=== PATIENT | female | born 1960 | race Hispanic/Latino ===

== ENCOUNTER 2017-10-04 21:21 | Inpatient (IN) | payer MEDICAID, OTHER ==
[2017-10-04 21:21] VITALS: BMI 27.3
--- NOTE | 2017-10-04 22:14 | C.PDOC ---
History Of Present Illness 57 y/o female hx of chronic alcohol abuse for years presents to the ED for alcohol detox. The patient denies fever, dizziness, headaches, vomiting, and diarrhea. Chief Complaint (Nursing): Psychiatric Evaluation History Per: Patient History/Exam Limitations: no limitations Onset/Duration Of Symptoms: Hrs Current Symptoms Are (Timing): Still Present Additional History Per: Patient Past Medical History Reviewed: Historical Data, Nursing Documentation, Vital Signs Vital Signs: Last Vital Signs Temp 97.7 F 10/04/17 21:47 Pulse 65 10/04/17 21:47 Resp 18 10/04/17 21:47 BP 136/84 10/04/17 21:47 Pulse Ox 94 L 10/04/17 22:21 - Medical History PMH: Anxiety (ALCOHOL USE), COPD, Depression, HTN, Chronic Kidney Disease, Seizures, TIA Denies: Alzheimer's Disease, Anemia, Arthritis, Asthma, Bipolar Disorder, Bronchitis, Cardia Arrhythmia, CHF, Crohn's Disease, Dementia, Diabetes, Diverticulitis, Emphysema, Fibromyalgia, Fractures, Gastrointestinal Ulcer, Gall Bladder Disease, Hepatitis, HIV, Hypercholesterolemia, Hyperthyroidism, Hypothyroidism, Kidney Stones, Migraine, Mitral Valve Prolapse, Osteoporosis, Pancreatitis, Paranoia, Parkinson's Disease, Peripheral Edema, Pneumonia, Post Traumatic Stress Disorder, Schizophrenia, Sickle Cell Disease, Sexually Transmitted Disease, Sleep Apnea Surgical History: Tonsillectomy Denies: Appendectomy, Cholecystectomy, Coronary Stent, Pacemaker - [facility] Procedures CENTRAL VENOUS CATHETER PLACEMENT WITH GUIDANCE (01/07/15) COMBINED ALCOHOL AND DRUG DETOXIFICATION (06/29/15) DETOXIFICATION SERVICES FOR SUBSTANCE ABUSE TREATMENT (02/23/16) INDIV PSYCHOTHERAPY FOR SUBSTANCE ABUSE, PSYCHOEDUCATION (02/23/16) INFLUENZA VACCINATION (01/28/14) INJECT/INFUSE NEC (12/18/12) INSPECTION OF UPPER INTESTINAL TRACT, ENDO (11/07/16) NEBULIZER THERAPY (09/10/14) OTHER ENDOSCOPY OF SM INTEST (06/11/13) PACKED CELL TRANSFUSION (01/07/15) PERCUTANEOUS ABDOMINAL DRAINAGE (01/07/15) PLATELET TRANSFUSION (01/07/15) SERUM TRANSFUSION NEC (01/07/15) TRANSFUSE NONAUT PLATELETS IN PERIPH VEIN, PERC (11/07/16) TRANSFUSE NONAUT RED BLOOD CELLS IN PERIPH VEIN, PERC (10/01/15) VACCINATION NEC (01/28/14) Family History: States: No Known Family Hx - Social History Hx Tobacco Use: Yes Hx Alcohol Use: Yes (BEER DAILY) Hx Substance Use: Yes - Immunization History Hx Tetanus Toxoid Vaccination: Yes Hx Influenza Vaccination: Yes Hx Pneumococcal Vaccination: Yes Review Of Systems Except As Marked, All Systems Reviewed And Found Negative. Constitutional: Negative for: Fever, Chills Cardiovascular: Negative for: Chest Pain Respiratory: Negative for: Shortness of Breath Gastrointestinal: Negative for: Nausea, Vomiting, Abdominal Pain, Diarrhea Physical Exam - Physical Exam Appears: Non-toxic, No Acute Distress Skin: Warm, Dry Head: Normacephalic Eye(s): bilateral: Normal Inspection Oral Mucosa: Moist Neck: Supple Chest: Symmetrical Cardiovascular: Rhythm Regular Respiratory: Normal Breath Sounds, No Rales, No Rhonchi, No Wheezing Gastrointestinal/Abdominal: Soft, No Tenderness, No Guarding, No Rebound Back: No Vertebral Tenderness, No Paraspinal Tenderness, Other (cysts on the left lower lumbar 3x3 cm) Extremity: No Tenderness, Capillary Refill (2<sec.) Neurological/Psych: Oriented x3, Normal Speech, Normal Cognition Gait: Steady ED Course And Treatment - Laboratory Results Result Diagrams: 10/04/17 22:42 10/04/17 22:42 O2 Sat by Pulse Oximetry: 94 (RA) Progress Note: UA and Blood work was performed. Disposition Discussed With : Brittany Castaneda Doctor Will See Patient In The: Hospital Counseled Patient/Family Regarding: Diagnosis - Disposition Disposition: HOSPITALIZED Disposition Time: 05:10 Condition: STABLE Forms: [facility] (Fijian) - POA Present On Arrival: None - Clinical Impression Clinical Impression: Alcohol abuse with alcohol-induced disorder - Scribe Statement The provider has reviewed the documentation as recorded by the Scribe Pamella Jay All medical record entries made by the Scribe were at my direction and personally dictated by me. I have reviewed the chart and agree that the record accurately reflects my personal performance of the history, physical exam, medical decision making, and the department course for this patient. I have also personally directed, reviewed, and agree with the discharge instructions and disposition.
[2017-10-04 22:46] LABS: BASO # 0.1 K/uL (0.0-0.2); BASO % 1.1 % (0.0-2.0); EOS # 0.1 K/uL (0.0-0.7); EOS % 2.7 % (0.0-4.0); HEMATOCRIT 44.8 % (34.0-47.0); LYMPH # 1.3 K/uL (1.0-4.3); MEAN CELL VOLUME 104.1 fL (81.0-99.0); MEAN CORPUSCULAR HEMOGLOBIN 34.9 pg (27.0-31.0); MEAN CORPUSCULAR HGB CONC 33.5 g/dL (33.0-37.0); MEAN PLATELET VOLUME 9.8 fL (7.2-11.7); MONO # 0.8 K/uL (0.0-0.8); MONO % 15.6 % (0.0-10.0); NRBC % 0.1 % (0.0-2.0); RED CELL DISTRIBUTION WIDTH 16.2 % (11.5-14.5); WHITE BLOOD COUNT 5.1 K/uL (4.8-10.8)
[2017-10-04 22:49] LABS: URINE BACTERIA RARE (<OCC); URINE BILIRUBIN NEGATIVE (NEGATIVE); URINE BLOOD NEGATIVE (NEGATIVE); URINE COLOR Yellow (YELLOW); URINE GLUCOSE (UA) NORMAL (Normal); URINE KETONE NEGATIVE (NEGATIVE); URINE LEUKOCYTE ESTERASE NEG Leu/uL (Negative); URINE PROTEIN 2+ mg/dL (NEGATIVE); URINE UROBILINOGEN NORMAL mg/dL (0.2-1.0); WBC URINE 1 /hpf (0-5)
[2017-10-04 22:59] LABS: ALKALINE PHOSPHATASE 223 U/L (38-126); ALT/SGPT 77 U/L (9-52); AST/SGOT 176 U/L (14-36); BILIRUBIN,TOTAL 5.1 mg/dL (0.2-1.3); BLOOD UREA NITROGEN 4 mg/dL (7-17); CALCIUM 7.8 mg/dl (8.6-10.4); CARBON DIOXIDE 21 mmol/L (22-30); CHLORIDE 100 mmol/L (98-107); GFR AFRICAN-AMERICAN > 60; GLUCOSE,RANDOM 76 mg/dL (65-105); POTASSIUM 4.4 mmol/L (3.6-5.2); SODIUM 132 mmol/L (132-148); TOTAL PROTEIN 8.7 g/dL (6.3-8.3)
[2017-10-04 23:00] LABS: ALB/GLOB RATIO 0.6 (1.0-2.1)
[2017-10-04 23:08] LABS: ALCOHOL SERUM 279 mg/dl (0-10)
--- NOTE | 2017-10-05 06:54 | PCM.BM ---
<Marialuisa Edmonds - Last Filed: 10/05/17 06:53> Treatment Plan Problems - Problems identified on initial assessmt Alcohol Abuse Date Initiated: 10/05/17 Time Initiated: 06:10 Status: Active Treatment assets and liabiliti Patient Assests: ADL independent, good support system, negotiates basic needs Patient Liabilities: relationship conflicts, substance abuse (Alcohol), medical problems (HTN, NON WITHDRAWAL SEIZURES) - Milieu Protocol Maintain good personal hygiene: daily Encourage regular showers, daily Remind patient to perform daily oral care Conduct patient checks and document Observation sheet: Q15 minutes Maintain personal safety: every shift Educate patient to report safety concerns to staff, every shift Monitor environment for contraband/sharps Medication safety: Monitor for expected outcome, potential side effects: every shift, Assess barriers to learning: every shift, Assess readiness for medication education: every shift <Segundo Bradford - Last Filed: 10/06/17 10:35> - Diagnosis (1) Opioid dependence Status: Acute Interventions: 10/06/17 10:36 * Assess 7x/week regarding severity of withdrawal * Educate regarding risks, benefits, side effects and alternatives of medications * Use Motivational Interviewing for abstinence * Use CBT for relapse prevention * Medication management for withdrawal symptoms * Encourage medication assisted treatment * (2) Alcohol abuse with alcohol-induced disorder Status: Acute Interventions: 10/06/17 10:35 * Assess 7x/week regarding severity of withdrawal * Educate regarding risks, benefits, side effects and alternatives of medications * Use Motivational Interviewing for abstinence * Use CBT for relapse prevention * Medication management for withdrawal symptoms * Encourage medication assisted treatment * <Hellen Cantu - Last Filed: 10/09/17 08:13> Family Contact Family involvement: Famliy/SO not involved Family contact: Patient declines to allow family contact at present - Goals for Treatment Patient goals for treatment: Complete detox and review aftercare options with unit counselors. Discharge/Continuing Care - Education Needs Education Needs: Patient Medication, Patient Diagnosis/Disease Process, Patient Coping Skills, Patient Anger Management skills, Patient Placement options, Patient Community resources - Discharge Discharge Criteria: Normal sleep pattern, No longer exhibiting s/s of withdrawal , Reduction of target symptoms Discharge to:: Other - Treatment Team Participation Patient/Family/SO Statement: 10/09/17 08:12 "I'm gonna think about my options before I make a decision..." Discussed with Family/SO: No Was Patient/Family/SO present at Treatment Team Meeting: Yes
--- NOTE | 2017-10-05 09:56 | PCM.PSYCH ---
Initial Psychiatric Evaluation - Initial Psychiatric Evaluation Type of Admission: Voluntary Legal Status: Capacity Chief Complaint (in patient's own words): "I am not well" History of Present Illness and Precipitating Events: The pt is seen, chart reviewed and She is a 57 y/o WF, single with 2 children - both young adults - lives with her mother in [place], does odd jobs on and off. She is here for alcohol detox - drinks 4-5 beers, each 24 oz. Her labs indicate higher use. She says she has been drinking for decades. Denies drug use now but is on 80 mg methadone at [facility] which did not return our numerous calls to confirm it but she is positive for methadone. She used to use heroin 10-15 bags and 2-3 Oxys a day. She used cocaine, MJ, xanax and klonopin in the past Had been to detox 5-6 times, rehab none Past psych hx: Still feels depressed and anxious. No SI but was at [facility] in February Family psych hx: "All psychotic" Her sister, brother and father all use heroin and alcohol (dad) Medical hx: Hep C, scoliosis, cirrhosis of the liver, PUD, HTN, leg varicose vein operation recently Past Psychiatric History - Past Psychiatric History Previous Treatment History: Inpatient Pertinent Medical Hx (Current Medical&Sleep Prob, Allergies): Allergies Allergy/AdvReac Type Severity Reaction Status Date / Time No Known Allergies Allergy Verified 10/04/17 21:51 Albuterol HFA [Ventolin HFA 90 mcg/actuation (8 g)] 1 puff INH DAILY 10/04/17 Methadone [Methadose] 80 mg PO DAILY 10/04/17 Multivitamin [Multi-Vitamin Daily] 1 tab PO DAILY 10/04/17 Propranolol [Inderal] 40 mg PO BID 10/04/17 Review of Systems - Neurological Neurological: Tremor - Psychiatric Psychiatric: Abnormal Sleep Pattern, Anhedonia, Anxiety, Depression, Difficulty Concentrating, Irritability. absent: Hallucinations, Homicidal Ideation, Suicidal Ideation Mental Status Examination - Personal Presentation Personal Presentation: Looks older than stated age - Affect Affect: Constricted - Motor Activity Motor Activity: Calm - Reliability in Providing Information Reliability in Providing Information: Good - Speech Speech: Organized - Mood Mood: Anxious - Formal Thought Process Formal Thought Process: No Impairment - Cognitive Functions Orientation: Person, Place, Situation, Time Sensorium: Drowsy Attention/Concentration: Easily distracted Estimate of Intelligence: Average Judgement: Intact, as evidence by: Insight regarding need for hospitalization Memory: Recent intact, as evidence by: Ability to recall events of the day, Remote intact, as evidenced by: Abilit to recall sig. 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 major depressive d/o - recurrent, moderate - Recommended/Plan of Treatment Treatment Recommendations and Plan of Treatment: Ativan detox As needed medications Gabapentin for augmentation Attend groups and activities Supportive therapy and psychoeducation [place] for abstinence CBT for relapse prevention Encourage MAT Refer to rehab or IOP Attend self-help groups as well Mg, lactulose and Vit D given b/c of hypoMg, high ammonia and hypo Vit D respectively Since the pt's dose is not confirmed we could only give her 40 mg/d today We will attempt tomorrow again We will likely file a complaint about the methadone program due to this unprofessional neglect. 34 min Projected ELOS: 4-5 days Prognosis: Good with treatment Discharge Plan and Discharge Criteria: No wdw sxs Refer to IOP plus methadone program - Smoking Cessation Smoking Cessation Initiated: Yes
[2017-10-05] MEDS: Multiple Vitamins Tab PO SCH (10:17)
[2017-10-05 11:49] LABS: MAGNESIUM 1.3 mg/dL (1.6-2.3)
[2017-10-05 12:19] LABS: THYROID STIMULATING HORMONE 2.15 mIU/L (0.46-4.68)
[2017-10-05] MEDS ORDERED: Methadone 40 mg Tab PO ONE ×2 (16:00→18:00)
[2017-10-05] MEDS ORDERED: Ergocalciferol 50,000 Intl Units Cap PO SCH ×2 (20:00→21:45)
[2017-10-05] MEDS ORDERED: Magnesium Oxide 400 mg Tab UD PO SCH (20:15)
[2017-10-05] MEDS: Magnesium Oxide 400 mg Tab UD PO SCH (21:51)
[2017-10-06] MEDS: Multiple Vitamins Tab PO SCH (09:42)
[2017-10-06] MEDS: Pantoprazole 20 mg EC Tab PO SCH (09:42)
[2017-10-06] MEDS ORDERED: Methadone 40 mg Tab PO ONE (10:45)
[2017-10-06] MEDS: Magnesium Oxide 400 mg Tab UD PO SCH ×2 (10:52→16:59)
--- NOTE | 2017-10-06 12:59 | PCM.PYCHPN ---
Psychiatric Progress Note - Psychiatric Progress Note Patient seen today, length of contact: 16 min Patient Chief Complaint: I'm feeling little better Problems Identified/Issues Discussed: Patient seen and evaluated, chart reviewed and discussed with the nurse. Patient reports withdrawal symptoms including nausea, headaches, and sweating. She reports some improvement in her irritability however she denies any SI/HI/ AVH. She is taking medication and denies any side effects. She needs more time for stabilization. Supportive therapy and psychoeducation were given. Medication Change: Yes (Ativan taper) Medical Record Reviewed: Yes Mental Status Examination - Cognitive Function Orientation: Person, Place, Situation, Time Memory: Intact Attention: WNL Concentration: Poor Association: WNL Fund of Knowledge: Poor - Mood Mood: Anxious - Affect Affect: Constricted - Speech Speech: Soft - Formal Thought Process Formal Thought Process: No Impairment - Suicidal Ideation Suicidal Ideation: No - Homicidal Ideation Homicidal Ideation: No Goal/Treatment Plan - Goal/Treatment Plan Need for Continued Stay: Severe depression anxiety, Severe functional impairment Progress Toward Problem(s) and Goals/Treatment Plan: Alcohol withdrawal Alcohol use d/o -severe Opioid use d/o - severe, on maintenance 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
[2017-10-06 14:10] LABS: ALB/GLOB RATIO 0.5 (1.0-2.1); ALKALINE PHOSPHATASE 156 U/L (38-126); ALT/SGPT 59 U/L (9-52); AST/SGOT 135 U/L (14-36); BILIRUBIN,TOTAL 5.9 mg/dL (0.2-1.3); BLOOD UREA NITROGEN 7 mg/dL (7-17); CALCIUM 7.9 mg/dl (8.6-10.4); CARBON DIOXIDE 28 mmol/L (22-30); CHLORIDE 98 mmol/L (98-107); GFR AFRICAN-AMERICAN > 60; GLUCOSE,RANDOM 111 mg/dL (65-105); MAGNESIUM 1.5 mg/dL (1.6-2.3); POTASSIUM 3.7 mmol/L (3.6-5.2); SODIUM 132 mmol/L (132-148); TOTAL PROTEIN 8.6 g/dL (6.3-8.3)
[2017-10-07] MEDS: Multiple Vitamins Tab PO SCH (11:07)
[2017-10-07] MEDS: Magnesium Oxide 400 mg Tab UD PO SCH ×2 (11:07→17:37)
--- NOTE | 2017-10-07 12:59 | PCM.PYCHPN ---
Psychiatric Progress Note - Psychiatric Progress Note Patient seen today, length of contact: 18 min Patient Chief Complaint: "I am very anxious" Problems Identified/Issues Discussed: The pt is seen, chart reviewed, case discussed with staff. Support given, CBT and [place] used briefly She is improving slowly and needs more time Her ammonia is still high - Lactulose is increased today to TID However, she is not delirious or confused, but unsteady, fatigued and very anxious No SEs from medications, risks discussed. After care discussed - not sure what she wants yet but [facility] to [facility], plus IOP Her dose is finally confirmed as the clinic is open now. Propagation Manager also left a message for an sales contract administrator. Her ativan taper is lowered a bit due to ammonia but tierney is increased Medication Change: Yes (Ativan taper) Medical Record Reviewed: Yes Mental Status Examination - Cognitive Function Orientation: Person, Place, Situation, Time Memory: Intact Attention: WNL Concentration: Poor Association: WNL Fund of Knowledge: Poor - Mood Mood: Anxious - Affect Affect: Constricted - Speech Speech: Soft - Formal Thought Process Formal Thought Process: No Impairment - Suicidal Ideation Suicidal Ideation: No - Homicidal Ideation Homicidal Ideation: No Goal/Treatment Plan - Goal/Treatment Plan Need for Continued Stay: Severe depression anxiety, Severe functional impairment Progress Toward Problem(s) and Goals/Treatment Plan: Ativan detox adjusted As needed medications Gabapentin for augmentation Attend groups and activities Supportive therapy and psychoeducation [place] for abstinence CBT for relapse prevention Refer to rehab or IOP Attend self-help groups as well Mg, lactulose and Vit D given b/c of hypoMg, high ammonia and hypo Vit D respectively
[2017-10-07] MEDS: Methadone 40 mg Tab PO SCH (13:34)
--- NOTE | 2017-10-07 13:49 | CP.PCM.CON ---
<Ash Arevalo - Last Filed: 10/07/17 18:54> History of Present Illness - History of Present Illness History of Present Illness: Medicine consultation: HPI: Patient is a 57 year old female with past medical history of past medical history of alcohol abuse, cirrhosis with esophageal varices, Hepatitis C, chronic thrombocytopenia, anxiety, depression, and history of opiate use now on chronic methadone, who presented to the ED (10/04/17) for alcohol detox. Patient was noted to have an serum alcohol level of 272 and UDS (+) for opiates. Medicine consultation was placed due to elevated ammonia level. During the encounter, patient was very lethargic and drowsy. Patient admits to decrease appetite and body aches but denies nausea, vomiting, diarrhea, fever and chills. Patient was oriented to place, date and time. PMD: none PMHx: anemia, anxiety, COPD, depression, upper GI bleed, HTN, CKD, seizures, cirrhosis, hepatitis C. PSHx: tonsillectomy FHx: no major inherited illness Allergies: NKDA Medications: As per chart review SocHx: Unemployed, lives with mother and aunt currently smokes 4 cigarettes per day, but used to smoke more. Admits to heroin and meth and EtOH abuse. Drank a lot of beers few days ago. Review of Systems - Constitutional Constitutional: Headache, Weakness. absent: Chills, Fever - EENT Eyes: absent: Blurred Vision, Change in Vision - Cardiovascular Cardiovascular: absent: Chest Pain, Diaphoresis, Dyspnea, Palpitations - Respiratory Respiratory: absent: Dyspnea - Gastrointestinal Gastrointestinal: absent: Abdominal Pain, Nausea, Vomiting - Neurological Neurological: Dizziness, Headaches, Weakness - Psychiatric Psychiatric: Change in Appetite Past Patient History - Infectious Disease Hx of Infectious Diseases: None - Tetanus Immunizations Tetanus Immunization: Unknown - Past Medical History & Family History Past Medical History?: Yes - Past Social History Smoking Status: Light Smoker < 10 Cigarettes Daily - CARDIAC Hx Cardia Arrhythmia: No Hx Congestive Heart Failure: No Hx Hypercholesterolemia: No Hx Hypertension: Yes Hx Mitral Valve Prolapse: No Hx Pacemaker: No Hx Peripheral Edema: No - PULMONARY Hx Asthma: No Hx Bronchitis: No Hx Chronic Obstructive Pulmonary Disease (COPD): Yes Hx Emphysema: No Hx Pneumonia: No Hx Sleep Apnea: No - NEUROLOGICAL Hx Alzheimer's Disease: No Hx Dementia: No Hx Migraine: No Hx Parkinson's Disease: No Hx Seizures: Yes Hx Transient Ischemic Attacks (TIA): Yes - HEENT Hx HEENT Problems: Yes (USES CONTACTS AND GLASSES) - RENAL Hx Chronic Kidney Disease: Yes Hx Kidney Stones: No - ENDOCRINE/METABOLIC Hx Hyperthyroidism: No Hx Hypothyroidism: No - HEMATOLOGICAL/ONCOLOGICAL Hx Anemia: No Hx Human Immunodeficiency Virus (HIV): No Hx Sickle Cell Disease: No - INTEGUMENTARY Hx Dermatological Problems: No - MUSCULOSKELETAL/RHEUMATOLOGICAL Hx Arthritis: No Hx Falls: No Hx Fractures: No Hx Osteoporosis: No - GASTROINTESTINAL Hx Crohn's Disease: No Hx Diverticulitis: No Hx Gall Bladder Disease: No Hx Pancreatitis: No - GENITOURINARY/GYNECOLOGICAL Hx Sexually Transmitted Disorders: No - PSYCHIATRIC Hx Substance Use: Yes - SURGICAL HISTORY Hx Appendectomy: No Hx Cholecystectomy: No Hx Coronary Stent: No Hx Tonsillectomy: Yes - ANESTHESIA Hx Anesthesia: Yes Hx Anesthesia Reactions: No Hx Malignant Hyperthermia: No Meds Allergies/Adverse Reactions: Allergies Allergy/AdvReac Type Severity Reaction Status Date / Time No Known Allergies Allergy Verified 10/04/17 21:51 - Medications Medications: Current Medications Clonidine HCl (Catapres) 0.1 mg PO Q4H PRN PRN Reason: Symptoms of alcohol withdrawl Last Admin: 10/06/17 09:42 Dose: 0.1 mg Ergocalciferol (Drisdol 50,000 Intl Units Cap) 1 cap PO Q7D [facility] Last Admin: 10/05/17 21:51 Dose: 1 cap Escitalopram Oxalate (Lexapro) 10 mg PO DAILY [facility] Folic Acid (Folic Acid) 1 mg PO DAILY [facility] Last Admin: 10/07/17 11:07 Dose: 1 mg Hydroxyzine HCl (Atarax) 25 mg PO Q4H PRN PRN Reason: Anxiety Ibuprofen (Motrin Tab) 400 mg PO Q6H PRN PRN Reason: Pain, moderate (4-7) Lactulose (Enulose) 30 gm PO TID [facility] Lorazepam (Ativan) 1 mg PO Q4H PRN PRN Reason: Anxiety symptoms of ETOH w/d Last Admin: 10/05/17 21:51 Dose: 1 mg Lorazepam (Ativan) 1 mg PO BID [facility] Stop: 10/09/17 10:01 Magnesium Oxide (Mag-Ox) 400 mg PO BID [facility] Last Admin: 10/07/17 11:07 Dose: 400 mg Methadone HCl (Methadose) 80 mg PO DAILY [facility] Last Admin: 10/07/17 13:34 Dose: 80 mg Multivitamins (Hexavitamin) 1 tab PO DAILY [facility] Last Admin: 10/07/17 11:07 Dose: 1 tab Pantoprazole Sodium (Protonix Ec Tab) 40 mg PO DAILY [facility] Rifaximin (Xifaxan) 550 mg PO BID [facility] Thiamine HCl (Vitamin B1 Tab) 100 mg PO DAILY [facility] Last Admin: 10/07/17 11:06 Dose: 100 mg Physical Exam - Head Exam Head Exam: ATRAUMATIC - Eye Exam Eye Exam: EOMI - ENT Exam ENT Exam: Mucous Membranes Moist - Respiratory Exam Respiratory Exam: Clear to Auscultation Bilateral, NORMAL BREATHING PATTERN - Cardiovascular Exam Cardiovascular Exam: REGULAR RHYTHM, +S1, +S2 - GI/Abdominal Exam GI & Abdominal Exam: Distended, Normal Bowel Sounds, Soft - Extremities Exam Additional comments: Varicose veins Results - Vital Signs Recent Vital Signs: Last Vital Signs Temp 98 F 10/07/17 06:01 Pulse 68 10/07/17 06:01 Resp 18 10/07/17 06:01 BP 155/89 H 10/07/17 06:01 Pulse Ox 96 10/07/17 06:01 - Labs Result Diagrams: 10/04/17 22:42 10/07/17 16:36 Labs: Laboratory Results - last 24 hr 10/06/17 10/06/17 10/07/17 13:36 13:36 00:17 Sodium 132 Potassium 3.7 Chloride 98 Carbon Dioxide 28 Anion Gap 10 BUN 7 Creatinine 0.5 L Est GFR ( Amer) > 60 Est GFR (Non-Af Amer) > 60 Random Glucose 111 H Calcium 7.9 L Magnesium 1.5 L Total Bilirubin 5.9 H AST 135 H D ALT 59 H D Alkaline Phosphatase 156 H D Ammonia 62 H D Total Protein 8.6 H Albumin 2.8 L Globulin 5.8 H Albumin/Globulin Ratio 0.5 L Urine HCG, Qual Negative Assessment & Plan (1) Serum ammonia increased Assessment and Plan: Labs: Ammonia: 62 Medications: * Lactulose 30mg PO TID * Rifaximin 550mg PO BID * Monitor with am labs Status: Acute (2) History of hepatitis C Assessment and Plan: F/U hepatitis panel F/U hep C viral load F/U CT abdomen/pelvis w/o contrast Status: Acute (3) Alcohol abuse with alcohol-induced disorder Assessment and Plan: Psychiatry, Dr. Rosario on board * Ativan detox * Ativan 1mg PO Q4H prn and BID * Folic acid 1mg po daily * Multivitamins 1 tab po daily * Thiamine 100mg PO daily Status: Acute (4) Opioid dependence Assessment and Plan: Psychiatry, Dr. Rosario on board * Clonidine 0.1mg PO Q4H prn * Methadone 80mg PO daily Status: Acute (5) History of psychiatric disorder Assessment and Plan: Psychiatry, Dr. Rosario on board Depression and anxiety Medications: * Lexpro 10mg PO daily * Atarax 25mg PO Q4H PRN Status: Acute (6) Prophylactic measure Assessment and Plan: GI: protonix 40mg PO daily DVT: SCDs Status: Acute <Maco Bee H - Last Filed: 10/08/17 07:09> Meds - Medications Medications: Current Medications Calcium Carbonate (Tums) 500 mg PO BID [facility] Clonidine HCl (Catapres) 0.1 mg PO Q4H PRN PRN Reason: Symptoms of alcohol withdrawl Last Admin: 10/06/17 09:42 Dose: 0.1 mg Ergocalciferol (Drisdol 50,000 Intl Units Cap) 1 cap PO Q7D [facility] Last Admin: 10/05/17 21:51 Dose: 1 cap Escitalopram Oxalate (Lexapro) 10 mg PO DAILY [facility] Folic Acid (Folic Acid) 1 mg PO DAILY [facility] Last Admin: 10/07/17 11:07 Dose: 1 mg Hydroxyzine HCl (Atarax) 25 mg PO Q4H PRN PRN Reason: Anxiety Ibuprofen (Motrin Tab) 400 mg PO Q6H PRN PRN Reason: Pain, moderate (4-7) Lactulose (Enulose) 30 gm PO TID [facility] Last Admin: 10/07/17 17:36 Dose: 30 gm Lorazepam (Ativan) 1 mg PO Q4H PRN PRN Reason: Anxiety symptoms of ETOH w/d Last Admin: 10/08/17 05:40 Dose: 1 mg Lorazepam (Ativan) 1 mg PO BID [facility] Stop: 10/09/17 10:01 Last Admin: 10/07/17 17:37 Dose: 1 mg Magnesium Oxide (Mag-Ox) 400 mg PO BID [facility] Last Admin: 10/07/17 17:37 Dose: 400 mg Methadone HCl (Methadose) 80 mg PO DAILY [facility] Last Admin: 10/07/17 13:34 Dose: 80 mg Multivitamins (Hexavitamin) 1 tab PO DAILY [facility] Last Admin: 10/07/17 11:07 Dose: 1 tab Pantoprazole Sodium (Protonix Ec Tab) 40 mg PO DAILY [facility] Rifaximin (Xifaxan) 550 mg PO BID [facility] Last Admin: 10/07/17 17:38 Dose: 550 mg Thiamine HCl (Vitamin B1 Tab) 100 mg PO DAILY [facility] Last Admin: 10/07/17 11:06 Dose: 100 mg Results - Vital Signs Recent Vital Signs: Last Vital Signs Temp 98.1 F 10/08/17 06:06 Pulse 77 10/08/17 06:06 Resp 18 10/08/17 06:06 BP 116/72 10/08/17 06:06 Pulse Ox 93 L 10/08/17 06:06 - Labs Result Diagrams: 10/04/17 22:42 10/07/17 16:36 Labs: Laboratory Results - last 24 hr 10/07/17 10/07/17 10/07/17 16:36 16:36 16:36 Sodium 130 L Potassium 4.1 Chloride 96 L Carbon Dioxide 25 Anion Gap 13 BUN 6 L Creatinine 0.5 L Est GFR ( Amer) > 60 Est GFR (Non-Af Amer) > 60 Random Glucose 110 H Calcium 7.7 L Phosphorus 3.2 Magnesium 1.5 L Total Bilirubin 5.9 H AST 158 H ALT 66 H Alkaline Phosphatase 156 H Ammonia 66 H Total Protein 8.0 Albumin 3.0 L Globulin 4.9 H Albumin/Globulin Ratio 0.6 L Hepatitis A IgM Ab Negative Hep Bs Antigen Negative Hep B Core IgM Ab Negative Hepatitis C Antibody Reactive Attending/Attestation - Attestation I have personally seen and examined this patient.: Yes I have fully participated in the care of the patient.: Yes I have reviewed all pertinent clinical information: Yes Notes (Text): 10/08/17 07:09 Medical consult: Patient was seen and examined by me, agrees the above note by the medical translator. We came and saw the patient on sedentary detox. She is currently at [address] [place] due to history of heroin use. There is a history of liver cirrhosis as well. She does have elevated AST and ALT, there is also elevated bilirubin levels well. She was also found to have a higher ammonia level I'm being told that earlier in the day the patient was much more awake and alert. By the time we saw her she was still awake, she did know person place and time however the staff on sedentary explained to us that it seemed like her affect was much slower and she seemed much more somnolent to them now. It is possible that this is medication the induce she is just received a larger dose of methadone, trazodone, Ativan, and another psychiatric medication. Nevertheless because of the higher ammonia level, were to check a CT scan of the chest abdomen and pelvis without contrast. Rate increased the lactulose, as well as start his rifampin mean (twice a day. Thank you very much, Maco Bee
--- NOTE | 2017-10-07 17:00 | CT ---
PROCEDURE: CT Abdomen and Pelvis without intravenous contrast HISTORY: possible Ascites COMPARISON: None. TECHNIQUE: Axial and reformatted coronal and sagittal CT images of the abdomen and pelvis were obtained without IV or oral contrast administration.. Contrast Dose: 0 Radiation dose: Total exam DLP = 510.8 mGy-cm. This CT exam was performed using one or more of the following dose reduction techniques: Automated exposure control, adjustment of the mA and/or kV according to patient size, and/or use of iterative reconstruction technique. FINDINGS: LOWER THORAX: Unremarkable. LIVER: UnremarkableThe liver is mildly enlarged demonstrate cirrhotic changes. No evidence of discrete mass lesion in this noncontrast study. . No gross lesion or ductal dilatation. GALLBLADDER AND BILE DUCTS: The gallbladder is mildly distended demonstrate mild diffuse wall thickening PANCREAS: Unremarkable. No gross lesion or ductal dilatation. SPLEEN: The spleen is prominent in size measures 12.5 centimeter. ADRENALS: Unremarkable. No mass. KIDNEYS AND URETERS: Unremarkable. No hydronephrosis. No solid mass. VASCULATURE: Unremarkable. No aortic aneurysm. BOWEL: Unremarkable. No obstruction. No gross mural thickening. APPENDIX: There is no evidence of appendicitis. PERITONEUM: There is small amount of fluid in the pelvis. No evidence of significant ascites in the abdomen. LYMPH NODES: Unremarkable. No enlarged lymph nodes. BLADDER: Unremarkable. REPRODUCTIVE: Unremarkable. BONES: No acute fracture. OTHER FINDINGS: None. IMPRESSION: Cirrhotic manifestation of the liver. Mild splenomegaly. No evidence of significant ascites in the abdomen. Small amount of free fluid in the pelvis. No evidence of acute pathology in the abdomen and pelvis.
[2017-10-07 17:35] LABS: ALKALINE PHOSPHATASE 156 U/L (38-126); ALT/SGPT 66 U/L (9-52); AST/SGOT 158 U/L (14-36); BILIRUBIN,TOTAL 5.9 mg/dL (0.2-1.3); BLOOD UREA NITROGEN 6 mg/dL (7-17); CALCIUM 7.7 mg/dl (8.6-10.4); CARBON DIOXIDE 25 mmol/L (22-30); CHLORIDE 96 mmol/L (98-107); GFR AFRICAN-AMERICAN > 60; GLUCOSE,RANDOM 110 mg/dL (65-105); MAGNESIUM 1.5 mg/dL (1.6-2.3); PHOSPHOROUS 3.2 mg/dL (2.5-4.5); POTASSIUM 4.1 mmol/L (3.6-5.2); SODIUM 130 mmol/L (132-148)
[2017-10-07 17:39] LABS: ALB/GLOB RATIO 0.6 (1.0-2.1)
[2017-10-07 20:06] VITALS: RESP 18
[2017-10-08] MEDS: Pantoprazole 20 mg EC Tab PO SCH (06:26)
[2017-10-08] MEDS: Multiple Vitamins Tab PO SCH (10:06)
[2017-10-08] MEDS: Calcium Carbonate 500 mg Chewable Antacid Tab PO SCH ×2 (10:06→17:43)
[2017-10-08 10:07] LABS: BASO % 0.9 % (0.0-2.0); EOS # 0.1 K/uL (0.0-0.7); EOS % 2.1 % (0.0-4.0); LYMPH # 0.8 K/uL (1.0-4.3); LYMPH % 14.9 % (20.0-40.0); MEAN CELL VOLUME 104.2 fL (81.0-99.0); MEAN CORPUSCULAR HEMOGLOBIN 35.1 pg (27.0-31.0); MEAN CORPUSCULAR HGB CONC 33.7 g/dL (33.0-37.0); MEAN PLATELET VOLUME 10.6 fL (7.2-11.7); MONO # 0.7 K/uL (0.0-0.8); MONO % 13.8 % (0.0-10.0); NRBC % 0.1 % (0.0-2.0); RED CELL DISTRIBUTION WIDTH 15.6 % (11.5-14.5); WHITE BLOOD COUNT 5.2 K/uL (4.8-10.8)
[2017-10-08] MEDS: Pantoprazole 40 mg EC Tab PO SCH (10:07)
[2017-10-08] MEDS: Magnesium Oxide 400 mg Tab UD PO SCH ×2 (10:07→18:03)
[2017-10-08] MEDS: Methadone 40 mg Tab PO SCH (10:08)
[2017-10-08 10:13] LABS: ALKALINE PHOSPHATASE 169 U/L (38-126); ALT/SGPT 71 U/L (9-52); AST/SGOT 154 U/L (14-36); BILIRUBIN,TOTAL 5.2 mg/dL (0.2-1.3); BLOOD UREA NITROGEN 5 mg/dL (7-17); CALCIUM 7.6 mg/dl (8.6-10.4); CARBON DIOXIDE 28 mmol/L (22-30); CHLORIDE 97 mmol/L (98-107); GFR AFRICAN-AMERICAN > 60; GLUCOSE,RANDOM 127 mg/dL (65-105); MAGNESIUM 1.5 mg/dL (1.6-2.3); PHOSPHOROUS 3.2 mg/dL (2.5-4.5); POTASSIUM 3.8 mmol/L (3.6-5.2); SODIUM 130 mmol/L (132-148); TOTAL PROTEIN 8.6 g/dL (6.3-8.3)
[2017-10-08 10:14] LABS: ALB/GLOB RATIO 0.5 (1.0-2.1)
--- NOTE | 2017-10-08 10:31 | PCM.PYCHPN ---
Psychiatric Progress Note - Psychiatric Progress Note Patient seen today, length of contact: 18 min Patient Chief Complaint: I'm feeling little better Problems Identified/Issues Discussed: Patient seen and evaluated, chart reviewed and discussed with the nurse. Today pt still reports withdrawal symptoms including joint pains, headache, and sweating. She reports of feeling weak and reports some improvement in her irritability however she denies any SI/HI/AVH. She is taking medication and denies any side effects. She needs more time for stabilization. Supportive therapy and psychoeducation were given. Medication Change: Yes (Ativan taper) Medical Record Reviewed: Yes Mental Status Examination - Cognitive Function Orientation: Person, Place, Situation, Time Memory: Intact Attention: WNL Concentration: Poor Association: WNL Fund of Knowledge: Poor - Mood Mood: Anxious - Affect Affect: Constricted - Speech Speech: Soft - Formal Thought Process Formal Thought Process: No Impairment - Suicidal Ideation Suicidal Ideation: No - Homicidal Ideation Homicidal Ideation: No Goal/Treatment Plan - Goal/Treatment Plan Need for Continued Stay: Severe depression anxiety, Severe functional impairment Progress Toward Problem(s) and Goals/Treatment Plan: Alcohol withdrawal Alcohol use d/o -severe Opioid use d/o - severe, on maintenance 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
--- NOTE | 2017-10-08 12:17 | CP.PCM.PN ---
Subjective - Date & Time of Evaluation Date of Evaluation: 10/08/17 Time of Evaluation: 07:40 - Subjective Subjective: Medicine Note ( PGY-1)---> Dr. Bee's service Patient was seen and examined at bedside. Patient was resting in bed comfortably and oriented to place and person. Patient had complaints of headache , dizziness, weakness, body aches and decreased appetite. Patient is utilizing a rolling walker for ambulation. Objective - Vital Signs/Intake and Output Vital Signs (last 24 hours): Temp Pulse Resp BP Pulse Ox 98.2 F 72 18 116/72 95 10/08/17 09:14 10/08/17 09:14 10/08/17 09:14 10/08/17 06:06 10/08/17 09:14 - Medications Medications: Current Medications Calcium Carbonate (Tums) 500 mg PO BID [facility] Last Admin: 10/08/17 10:06 Dose: 500 mg Clonidine HCl (Catapres) 0.1 mg PO Q4H PRN PRN Reason: Symptoms of alcohol withdrawl Last Admin: 10/06/17 09:42 Dose: 0.1 mg Ergocalciferol (Drisdol 50,000 Intl Units Cap) 1 cap PO Q7D [facility] Last Admin: 10/05/17 21:51 Dose: 1 cap Escitalopram Oxalate (Lexapro) 10 mg PO DAILY [facility] Last Admin: 10/08/17 10:07 Dose: 10 mg Folic Acid (Folic Acid) 1 mg PO DAILY [facility] Last Admin: 10/08/17 10:07 Dose: 1 mg Hydroxyzine HCl (Atarax) 25 mg PO Q4H PRN PRN Reason: Anxiety Ibuprofen (Motrin Tab) 400 mg PO Q6H PRN PRN Reason: Pain, moderate (4-7) Lactulose (Enulose) 30 gm PO TID [facility] Last Admin: 10/08/17 10:11 Dose: Not Given Lorazepam (Ativan) 1 mg PO Q4H PRN PRN Reason: Anxiety symptoms of ETOH w/d Last Admin: 10/08/17 05:40 Dose: 1 mg Lorazepam (Ativan) 1 mg PO BID [facility] Stop: 10/09/17 10:01 Last Admin: 10/08/17 10:07 Dose: 1 mg Magnesium Oxide (Mag-Ox) 400 mg PO BID [facility] Last Admin: 10/08/17 10:07 Dose: 400 mg Methadone HCl (Methadose) 80 mg PO DAILY [facility] Last Admin: 10/08/17 10:08 Dose: 80 mg Multivitamins (Hexavitamin) 1 tab PO DAILY [facility] Last Admin: 10/08/17 10:06 Dose: 1 tab Pantoprazole Sodium (Protonix Ec Tab) 40 mg PO DAILY [facility] Last Admin: 10/08/17 10:07 Dose: 40 mg Rifaximin (Xifaxan) 550 mg PO BID [facility] Last Admin: 10/08/17 10:07 Dose: 550 mg Thiamine HCl (Vitamin B1 Tab) 100 mg PO DAILY [facility] Last Admin: 10/08/17 10:07 Dose: 100 mg - Labs Labs: 10/08/17 09:57 10/08/17 09:57 - Constitutional Appears: No Acute Distress - Head Exam Head Exam: ATRAUMATIC, NORMAL INSPECTION - Eye Exam Eye Exam: EOMI - Cardiovascular Exam Cardiovascular Exam: REGULAR RHYTHM, +S1, +S2 - GI/Abdominal Exam GI & Abdominal Exam: Soft, Normal Bowel Sounds - Extremities Exam Additional comments: Bilateral varicose veins - Neurological Exam Neurological Exam: Alert - Skin Skin Exam: Normal Color Assessment and Plan (1) Serum ammonia increased Assessment & Plan: Trending down Medications: * Lactulose 30mg PO TID * Rifaximin 550mg PO BID * Monitor with am labs Status: Acute (2) History of hepatitis C Assessment & Plan: Hepatitis Panel * Hep A, B:Negative * Hep C antibody: Reactive F/u Hep viral load Imaging: Abdomen CT/Pelvis: Cirrhotic manifestation of the liver. Mild splenomegaly. No evidence of significant ascites in the abdomen. Small amount of free fluid in the pelvis. No evidence of acute pathology in the abdomen and pelvis. Status: Acute (3) Alcohol abuse with alcohol-induced disorder Assessment & Plan: Psychiatry, Dr. Rosario on board * Ativan detox * Ativan 1mg PO Q4H prn and BID * Folic acid 1mg po daily * Multivitamins 1 tab po daily * Thiamine 100mg PO daily Status: Acute (4) Opioid dependence Assessment & Plan: Psychiatry, Dr. Rosario on board * Clonidine 0.1mg PO Q4H prn * Methadone 80mg PO daily Status: Acute (5) History of psychiatric disorder Assessment & Plan: Psychiatry, Dr. Rosario on board Depression and anxiety Medications: * Lexpro 10mg PO daily * Atarax 25mg PO Q4H PRN Status: Acute (6) Prophylactic measure Assessment & Plan: GI: protonix 40mg PO daily DVT: SCDs Status: Acute
[2017-10-09 08:07] LABS: EOS # 0.1 K/uL (0.0-0.7); RED CELL DISTRIBUTION WIDTH 15.9 % (11.5-14.5)
[2017-10-09 08:15] LABS: BASO % 0.9 % (0.0-2.0); EOS % 2.1 % (0.0-4.0); HEMATOCRIT 44.7 % (34.0-47.0); LYMPH # 0.6 K/uL (1.0-4.3); MEAN CELL VOLUME 105.5 fL (81.0-99.0); MEAN CORPUSCULAR HEMOGLOBIN 34.9 pg (27.0-31.0); MEAN CORPUSCULAR HGB CONC 33.1 g/dL (33.0-37.0); MEAN PLATELET VOLUME 10.3 fL (7.2-11.7); MONO # 0.8 K/uL (0.0-0.8); MONO % 14.8 % (0.0-10.0); NRBC % 1.2 % (0.0-2.0); WHITE BLOOD COUNT 5.1 K/uL (4.8-10.8)
[2017-10-09 08:43] LABS: ALB/GLOB RATIO 0.6 (1.0-2.1); ALKALINE PHOSPHATASE 158 U/L (38-126); ALT/SGPT 58 U/L (9-52); AST/SGOT 129 U/L (14-36); BILIRUBIN,TOTAL 5.6 mg/dL (0.2-1.3); BLOOD UREA NITROGEN 7 mg/dL (7-17); CALCIUM 7.5 mg/dl (8.6-10.4); CARBON DIOXIDE 24 mmol/L (22-30); CHLORIDE 99 mmol/L (98-107); GFR AFRICAN-AMERICAN > 60; GLUCOSE,RANDOM 88 mg/dL (65-105); MAGNESIUM 1.5 mg/dL (1.6-2.3); POTASSIUM 3.7 mmol/L (3.6-5.2); SODIUM 131 mmol/L (132-148); TOTAL PROTEIN 7.5 g/dL (6.3-8.3)
[2017-10-09] MEDS ORDERED: Magnesium Sulfate 1 gm in D5W 1 GM/100 ML BAG IVPB ONE (09:12)
[2017-10-09] MEDS: Magnesium Oxide 400 mg Tab UD PO SCH ×2 (10:37→17:46)
[2017-10-09] MEDS: Methadone 40 mg Tab PO SCH (10:38)
[2017-10-09] MEDS: Calcium Carbonate 500 mg Chewable Antacid Tab PO SCH ×2 (10:39→17:47)
[2017-10-09] MEDS: Multiple Vitamins Tab PO SCH (10:39)
[2017-10-09] MEDS: Pantoprazole 40 mg EC Tab PO SCH (10:39)
--- NOTE | 2017-10-09 13:13 | PCM.PYCHPN ---
Psychiatric Progress Note - Psychiatric Progress Note Patient seen today, length of contact: 19 min Patient Chief Complaint: "I am not well" Problems Identified/Issues Discussed: The pt is seen, chart reviewed, case discussed with staff. Support given, CBT and NC used briefly Medicine is on board - help appreciated She will be dc'ed tomorrow but she is still very weak and ammonia high Nevertheless, she is not delirious After care discussed in detail relapse prevention too Medication Change: Yes (Ativan taper) Medical Record Reviewed: Yes Mental Status Examination - Cognitive Function Orientation: Person, Place, Situation, Time Memory: Intact Attention: WNL Concentration: Poor Association: WNL Fund of Knowledge: Poor - Mood Mood: Anxious - Affect Affect: Constricted - Speech Speech: Soft - Formal Thought Process Formal Thought Process: No Impairment - Suicidal Ideation Suicidal Ideation: No - Homicidal Ideation Homicidal Ideation: No Goal/Treatment Plan - Goal/Treatment Plan Need for Continued Stay: Severe depression anxiety, Severe functional impairment Progress Toward Problem(s) and Goals/Treatment Plan: Ativan detox adjusted As needed medications Gabapentin for augmentation Attend groups and activities Supportive therapy and psychoeducation [place] for abstinence CBT for relapse prevention Refer to rehab or IOP Attend self-help groups as well medicine w/u and tx
--- NOTE | 2017-10-09 20:51 | CP.PCM.PN ---
Subjective - Date & Time of Evaluation Date of Evaluation: 10/09/17 Time of Evaluation: 09:00 - Subjective Subjective: Medicine Note ( PGY-1)---> Dr. Bee's service Patient was seen and examined at bedside. Patient was resting in bed comfortably and oriented to place and person. Patient had complaints of weakness and decreased appetite. Patient is continues to utilize her rolling walker for ambulation. As per nursing staff, patient intermittently refuses lactulose, however, the necessity of the medication for the patient's elevated ammonia levels was reinforced again. Objective - Vital Signs/Intake and Output Vital Signs (last 24 hours): Temp Pulse Resp BP Pulse Ox 98.2 F 73 18 126/88 93 L 10/09/17 17:01 10/09/17 17:01 10/09/17 17:01 10/09/17 17:01 10/09/17 17:01 - Medications Medications: Current Medications Calcium Carbonate (Tums) 500 mg PO BID [facility] Last Admin: 10/09/17 17:47 Dose: 500 mg Clonidine HCl (Catapres) 0.1 mg PO Q4H PRN PRN Reason: Symptoms of alcohol withdrawl Last Admin: 10/09/17 05:45 Dose: 0.1 mg Ergocalciferol (Drisdol 50,000 Intl Units Cap) 1 cap PO Q7D [facility] Last Admin: 10/05/17 21:51 Dose: 1 cap Escitalopram Oxalate (Lexapro) 10 mg PO DAILY [facility] Last Admin: 10/09/17 10:39 Dose: 10 mg Folic Acid (Folic Acid) 1 mg PO DAILY [facility] Last Admin: 10/09/17 10:39 Dose: 1 mg Hydroxyzine HCl (Atarax) 25 mg PO Q4H PRN PRN Reason: Anxiety Ibuprofen (Motrin Tab) 400 mg PO Q6H PRN PRN Reason: Pain, moderate (4-7) Lactulose (Enulose) 30 gm PO TID [facility] Last Admin: 10/09/17 18:43 Dose: 30 gm Lorazepam (Ativan) 1 mg PO Q4H PRN PRN Reason: Anxiety symptoms of ETOH w/d Last Admin: 10/09/17 05:48 Dose: 1 mg Magnesium Oxide (Mag-Ox) 400 mg PO BID [facility] Last Admin: 10/09/17 17:46 Dose: 400 mg Methadone HCl (Methadose) 80 mg PO DAILY [facility] Last Admin: 10/09/17 10:38 Dose: 80 mg Multivitamins (Hexavitamin) 1 tab PO DAILY [facility] Last Admin: 10/09/17 10:39 Dose: 1 tab Pantoprazole Sodium (Protonix Ec Tab) 40 mg PO DAILY [facility] Last Admin: 10/09/17 10:39 Dose: 40 mg Rifaximin (Xifaxan) 550 mg PO BID [facility] Last Admin: 10/09/17 17:47 Dose: 550 mg Thiamine HCl (Vitamin B1 Tab) 100 mg PO DAILY [facility] Last Admin: 10/09/17 10:40 Dose: 100 mg - Labs Labs: 10/09/17 07:58 10/09/17 07:58 - Constitutional Appears: No Acute Distress - Head Exam Head Exam: ATRAUMATIC - Eye Exam Eye Exam: EOMI - ENT Exam ENT Exam: Mucous Membranes Dry - Respiratory Exam Respiratory Exam: Clear to Ausculation Bilateral, NORMAL BREATHING PATTERN - Cardiovascular Exam Cardiovascular Exam: REGULAR RHYTHM, +S1, +S2 - GI/Abdominal Exam GI & Abdominal Exam: Soft, Normal Bowel Sounds. absent: Tenderness - Extremities Exam Additional comments: bilateral varicose veins - Neurological Exam Neurological Exam: Alert, Awake, Oriented x3 - Psychiatric Exam Psychiatric exam: Anxious - Skin Skin Exam: Normal Color Assessment and Plan (1) Serum ammonia increased Assessment & Plan: Intermittenly, trending down due to patient refusing lactulose Medications: * Lactulose 30mg PO TID * Rifaximin 550mg PO BID Status: Acute (2) History of hepatitis C Assessment & Plan: Hepatitis Panel * Hep A, B:Negative * Hep C antibody: Reactive Imaging: Abdomen CT/Pelvis: Cirrhotic manifestation of the liver. Mild splenomegaly. No evidence of significant ascites in the abdomen. Small amount of free fluid in the pelvis. No evidence of acute pathology in the abdomen and pelvis. Status: Acute (3) Alcohol abuse with alcohol-induced disorder Assessment & Plan: Psychiatry, Dr. Rosario on board * Ativan detox * Ativan 1mg PO Q4H prn and BID * Folic acid 1mg po daily * Multivitamins 1 tab po daily * Thiamine 100mg PO daily Status: Acute (4) Opioid dependence Assessment & Plan: Psychiatry, Dr. Rosario on board * Clonidine 0.1mg PO Q4H prn * Methadone 80mg PO daily Status: Acute (5) History of psychiatric disorder Assessment & Plan: Psychiatry, Dr. Castaneda and Sanchez on board Depression and anxiety Medications: * Lexpro 10mg PO daily * Atarax 25mg PO Q4H PRN Status: Acute (6) Prophylactic measure Assessment & Plan: GI: protonix 40mg PO daily DVT: SCDs Disposition: anticipating discharge tomorrow. Patient has been instructed to continue with lactulose 30mg PO TID and Rifixamin 550mg PO bid ( for a week) Thank you for this medicine consultation Status: Acute
--- NOTE | 2017-10-10 08:44 | PCM.PYCHDC ---
Mental Status Examination - Mental Status Examination Orientation: Person, Place, Situation, Time Memory: Impaired Mood: Anxious Affect: Constricted Speech: Appropriate Attention: Poor Concentration: Poor Association: WNL Fund of Knowledge: WNL Formal Thought Process: No Impairment Suicidal Ideation: No Current Homicidal Ideation?: No Discharge Summary - Discharge Note Reason for Hospitalization: Alcohol detox Laboratory Data: Abnormal Lab Results 10/09/17 07:58 Differential Comment Consultations:: List each consultation separately and include: 1. Reason for request. 2. Findings. 3. Follow-up Consultations: Medicine - help appreciated Summary of Hospital Course include:: 1. Description of specific treatment plan utilized for patients during their course of treatmen. 2. Summarize the time- course for resolution of acute symptoms and/or regressed behaviors. 3. Describe issues identified and worked on during hospitalization. 4. Describe medication utilized. 5. Describe medical problems identified and treated. 6. Reassessment of suicide risk Summary of Hospital Course: The pt is seen, chart reviewed. On admission: She is a 57 y/o WF, single with 2 children - both young adults - lives with her mother in [place], does odd jobs on and off. She is here for alcohol detox - drinks 4-5 beers, each 24 oz. Her labs indicate higher use. She says she has been drinking for decades. Denies drug use now but is on 80 mg methadone at [facility] which did not return our numerous calls to confirm it but she is positive for methadone. She used to use heroin 10-15 bags and 2-3 Oxys a day. She used cocaine, MJ, xanax and klonopin in the past Had been to detox 5-6 times, rehab none Past psych hx: Still feels depressed and anxious. No SI but was at [facility] in February Family psych hx: "All psychotic" Her sister, brother and father all use heroin and alcohol (dad) Medical hx: Hep C, scoliosis, cirrhosis of the liver, PUD, HTN, leg varicose vein operation recently Hospital course: The pt was admitted and started on treatment with psychotherapy, support, psychoeducation and medications. ME and CBT used. The pt attended groups and activities, as well as milieu therapy. All the risks and benefits of medications are discussed and the patient understood and agreed. The pt improved with the treatments provided. After care discussed with the patient. She chose to go to [facility] for methadone That clinic, [facility], failed to call us back or update their holiday phone message with the "urgent line": and so the pt's dose could not be verified and she took 40 mg two days instead of 80 Also her ammonia and LFTs all were high but she was not delirious, just very fatigued and withdrawn. She could barely walk. 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 Follow after care plan as discussed. Use relapse prevention skills Return to ER or call 911 if suicidal, homicidal or symptoms relapse. Stay away from stress, alcohol and drugs. See primary doctor regularly and get labs FARIBA She is warned against risks of ammonia and liver deficiency Prescriptions/Medication Reconciliation: Calcium Carbonate [Tums] 500 mg PO BID #60 ctb Ergocalciferol [Drisdol 50,000 Intl Units Cap] 1 cap PO Q7D #4 cap Escitalopram [Lexapro] 10 mg PO DAILY #30 tab hydrOXYzine HCl [Atarax] 25 mg PO HS PRN #30 tab PRN Reason: Anxiety Magnesium Oxide [Mag-Ox] 400 mg PO DAILY #30 tab Pantoprazole [Protonix EC Tab] 40 mg PO DAILY #30 ect
[2017-10-10] MEDS: Calcium Carbonate 500 mg Chewable Antacid Tab PO SCH (09:24)
[2017-10-10] MEDS: Pantoprazole 40 mg EC Tab PO SCH (09:24)
[2017-10-10] MEDS: Methadone 40 mg Tab PO SCH (09:24)
[2017-10-10] MEDS: Magnesium Oxide 400 mg Tab UD PO SCH (09:24)
[2017-10-10] MEDS: Multiple Vitamins Tab PO SCH (09:24)
[2017-10-10 09:30] VITALS: BP 138/87; PULSE 78; TEMP 98.2; O2SAT 96
[2017-10-11 16:00] LABS: HEPATITIS C VIRAL RNA QUAL Detected
== END 2017-10-10 11:15 | disposition home or self-care (01) | DRG 744 ==
LOC: C.ER 21:21 → C.7D 10-05 05:12
PROVIDERS: ADMIT Psychiatry & Neurology Psychiatry; ATTEND Psychiatry & Neurology Psychiatry
PROC: HZ2ZZZZ Detoxification Services for Substance Abuse Treatment (ICD-10-PCS; principal; 2017-10-05)
PROC: HZ52ZZZ Individual Psychotherapy for Substance Abuse Treatment, Cognitive-Behavioral (ICD-10-PCS; 2017-10-05)
PROC: HZ59ZZZ Individual Psychotherapy for Substance Abuse Treatment, Supportive (ICD-10-PCS; 2017-10-05)
PROC: HZ56ZZZ Individual Psychotherapy for Substance Abuse Treatment, Psychoeducation (ICD-10-PCS; 2017-10-05)
PROC: HZ57ZZZ Individual Psychotherapy for Substance Abuse Treatment, Motivational Enhancement (ICD-10-PCS; 2017-10-05)
DX: F10.230 Alcohol dependence with withdrawal, uncomplicated (principal); J44.9 Chronic obstructive pulmonary disease, unspecified; F11.20 Opioid dependence, uncomplicated; K74.60 Unspecified cirrhosis of liver; M41.9 Scoliosis, unspecified; N18.9 Chronic kidney disease, unspecified; B19.20 Unspecified viral hepatitis C without hepatic coma; F17.210 Nicotine dependence, cigarettes, uncomplicated; F32.9 Major depressive disorder, single episode, unspecified; F41.9 Anxiety disorder, unspecified; Y90.8 Blood alcohol level of 240 mg/100 ml or more; I12.9 Hypertensive chronic kidney disease with stage 1 through stage 4 chronic kidney disease, or unspecified chronic kidney disease; Z87.11 Personal history of peptic ulcer disease; Z86.73 Personal history of transient ischemic attack (TIA), and cerebral infarction without residual deficits

== ENCOUNTER 2018-06-21 00:26 | Inpatient (IN) | payer MEDICAID, OTHER ==
[2018-06-21 00:26] VITALS: BMI 26.6
--- NOTE | 2018-06-21 01:08 | C.PDOC ---
History Of Present Illness 57 year old female presents to the emergency department requesting detox from opiates and alcohol. Patient reports she last used drugs a few hours prior to arrival. Time Seen by Provider: 06/21/18 01:08 Chief Complaint (Nursing): Substance Abuse History Per: Patient History/Exam Limitations: no limitations Onset/Duration Of Symptoms: Hrs Current Symptoms Are (Timing): Still Present Suicide/Self Injury Attempted (Context): None Modifying Factor(s): Alcohol, Other (opiates) Severity: None Associated Symptoms: denies: Anger, Anxiety, Depression Involuntary Hold By: None Recent travel outside of the [place]: No Additional History Per: Patient Past Medical History Reviewed: Historical Data, Nursing Documentation, Vital Signs Vital Signs: Last Vital Signs Temp 98.1 F 06/21/18 00:30 Pulse 70 06/21/18 00:30 Resp 20 06/21/18 00:30 BP 134/95 H 06/21/18 00:30 Pulse Ox 96 06/21/18 01:29 - Medical History PMH: Anxiety (ALCOHOL USE), COPD, Depression, Fractures (LEFTM SHOULDER FX WITH DISLOCATION.), HTN, Chronic Kidney Disease, Seizures, TIA Denies: Alzheimer's Disease, Anemia, Arthritis, Asthma, Bipolar Disorder, Bronchitis, Cardia Arrhythmia, CHF, Crohn's Disease, Dementia, Diabetes, Diverticulitis, Emphysema, Fibromyalgia, Gastrointestinal Ulcer, Gall Bladder Disease, Hepatitis, HIV, Hypercholesterolemia, Hyperthyroidism, Hypothyroidism, Kidney Stones, Migraine, Mitral Valve Prolapse, Osteoporosis, Pancreatitis, Paranoia, Parkinson's Disease, Peripheral Edema, Pneumonia, Post Traumatic Stress Disorder, Schizophrenia, Sickle Cell Disease, Sexually Transmitted Disease, Sleep Apnea Surgical History: Tonsillectomy Denies: Appendectomy, Cholecystectomy, Coronary Stent, Pacemaker - [facility] Procedures CENTRAL VENOUS CATHETER PLACEMENT WITH GUIDANCE (01/07/15) COMBINED ALCOHOL AND DRUG DETOXIFICATION (06/29/15) DETOXIFICATION SERVICES FOR SUBSTANCE ABUSE TREATMENT (10/05/17) INDIV PSYCHOTHERAPY FOR SUBSTANCE ABUSE TREATMENT, SUPPORT (10/05/17) INDIV PSYCHOTHERAPY FOR SUBSTANCE ABUSE, COGNITIV BEHAVIORAL (10/05/17) INDIV PSYCHOTHERAPY FOR SUBSTANCE ABUSE, MOTIVATION ENHANCE (10/05/17) INDIV PSYCHOTHERAPY FOR SUBSTANCE ABUSE, PSYCHOEDUCATION (10/05/17) INFLUENZA VACCINATION (01/28/14) INJECT/INFUSE NEC (12/18/12) INSPECTION OF UPPER INTESTINAL TRACT, ENDO (11/07/16) NEBULIZER THERAPY (09/10/14) OTHER ENDOSCOPY OF SM INTEST (06/11/13) PACKED CELL TRANSFUSION (01/07/15) PERCUTANEOUS ABDOMINAL DRAINAGE (01/07/15) PLATELET TRANSFUSION (01/07/15) REPOSITION LEFT HUMERAL HEAD WITH INT FIX, OPEN APPROACH (02/24/18) REPOSITION LEFT SHOULDER JOINT, EXTERNAL APPROACH (02/24/18) SERUM TRANSFUSION NEC (01/07/15) TRANSFUSE NONAUT PLATELETS IN PERIPH VEIN, PERC (11/07/16) TRANSFUSE NONAUT RED BLOOD CELLS IN PERIPH VEIN, PERC (10/01/15) VACCINATION NEC (01/28/14) Family History: States: No Known Family Hx - Social History Hx Tobacco Use: Yes Hx Alcohol Use: Yes (LAST DRANK AT 3 AM 1 24 OZ BEER.) Hx Substance Use: Yes - Immunization History Hx Tetanus Toxoid Vaccination: Yes Hx Influenza Vaccination: Yes Hx Pneumococcal Vaccination: Yes Review Of Systems Constitutional: Negative for: Fever, Chills Cardiovascular: Negative for: Chest Pain Respiratory: Negative for: Shortness of Breath Gastrointestinal: Negative for: Nausea, Vomiting, Abdominal Pain Musculoskeletal: Negative for: Back Pain Skin: Negative for: Rash Neurological: Negative for: Weakness Psych: Positive for: Anxiety Physical Exam - Physical Exam Appears: Non-toxic, No Acute Distress Skin: Warm, Dry Head: Normacephalic Eye(s): bilateral: Normal Inspection Oral Mucosa: Moist Neck: Trachea Midline, Supple Chest: Symmetrical, No Tenderness Cardiovascular: Rhythm Regular, No Murmur Respiratory: No Rales, No Rhonchi, No Wheezing Gastrointestinal/Abdominal: Soft, No Tenderness, No Guarding, No Rebound Back: Normal Inspection Extremity: Bilateral: Normal Color And Temperature Neurological/Psych: Oriented x3 Gait: Steady ED Course And Treatment - Laboratory Results Result Diagrams: 06/21/18 01:11 06/21/18 01:11 O2 Sat by Pulse Oximetry: 96 (RA) Pulse Ox Interpretation: Normal Progress Note: Plan: Alcohol Serum. CMP. Drug Screen. CBC. AES Crisis Eval. HCG Qualitative Urine. Urinalysis Disposition Discussed With DrFaisal: Nicho Doe Comment: accetped the pt onhis service and took over the care at 3:11 AM Doctor Will See Patient In The: Hospital Counseled Patient/Family Regarding: Studies Performed, Diagnosis - Disposition Disposition: HOSPITALIZED Disposition Time: 01:08 Condition: FAIR Forms: [facility] (Hong Konger) - POA Present On Arrival: Poor Glycemic Control - Clinical Impression Clinical Impression: Drug dependence, Opioid dependence, Alcohol abuse - Scribe Statement The provider has reviewed the documentation as recorded by the Scribe (Buzz Sage) Provider Attestation: All medical record entries made by the Scribe were at my direction and personally dictated by me. I have reviewed the chart and agree that the record accurately reflects my personal performance of the history, physical exam, medical decision making, and the department course for this patient. I have also personally directed, reviewed, and agree with the discharge instructions and disposition. Decision To Admit - Pt Status Changed To: Hospital Disposition Of: Inpatient - Admit Certification Admit to Inpatient:: After my assessment, the patient will require hospitalization for at least two midnights. This is because of the severity of symptoms shown, intensity of services needed, and/or the medical risk in this patient being treated as an outpatient. - InPatient: Physician Admission Certification: I certify that this patient requires 2 or more midnights of care for the following reason:: After my assessment, the patient will require hospitalization for at least two midnights. This is because of the severity of symptoms shown, intensity of services needed, and/or the medical risk in this patient being treated as an outpatient. - . Bed Request Type: Detox Admitting Physician: Nicho Doe Patient Diagnosis: Drug dependence, Opioid dependence, Alcohol abuse
[2018-06-21 01:16] LABS: BASO % 0.9 % (0.0-2.0); EOS # 0.1 K/uL (0.0-0.7); EOS % 2.4 % (0.0-4.0); HEMOGLOBIN 15.5 g/dL (11.0-16.0); LYMPH # 1.4 K/uL (1.0-4.3); LYMPH % 25.5 % (20.0-40.0); MEAN CELL VOLUME 93.9 fL (81.0-99.0); MEAN CORPUSCULAR HEMOGLOBIN 31.9 pg (27.0-31.0); MEAN CORPUSCULAR HGB CONC 33.9 g/dL (33.0-37.0); MEAN PLATELET VOLUME 10.1 fL (7.2-11.7); MONO # 0.7 K/uL (0.0-0.8); MONO % 11.6 % (0.0-10.0); NEUT # 3.4 K/uL (1.8-7.0); NEUT % 59.6 % (50.0-75.0); NRBC % 0.5 % (0.0-2.0); RBC 4.86 Mil/uL (3.80-5.20); RED CELL DISTRIBUTION WIDTH 18.8 % (11.5-14.5); WHITE BLOOD COUNT 5.7 K/uL (4.8-10.8)
[2018-06-21 01:25] LABS: SQUAMOUS EPITHIAL 3 /hpf (0-5); URINE BACTERIA OCC (<OCC); URINE BILIRUBIN NEGATIVE (NEGATIVE); URINE BLOOD NEGATIVE (NEGATIVE); URINE CLARITY Hazy (Clear); URINE COLOR Yellow (YELLOW); URINE GLUCOSE (UA) NORMAL (Normal); URINE LEUKOCYTE ESTERASE NEG Leu/uL (Negative); URINE PROTEIN 2+ mg/dL (NEGATIVE); URINE UROBILINOGEN NORMAL mg/dL (0.2-1.0)
[2018-06-21 01:31] LABS: BARBITURATES, UR NEGATIVE (NEGATIVE); BENZODIAZEPINES, UR NEGATIVE (NEGATIVE)
[2018-06-21 01:40] LABS: ALB/GLOB RATIO 0.9 (1.0-2.1); ALT/SGPT 65 U/L (9-52); AST/SGOT 124 U/L (14-36); BLOOD UREA NITROGEN 4 mg/dL (7-17); CALCIUM 8.1 mg/dl (8.6-10.4); GFR AFRICAN-AMERICAN > 60; GFR NON-AFRICAN AMERICAN > 60
[2018-06-21 01:44] LABS: PHENCYCLIDINE, UR NEGATIVE (NEGATIVE)
[2018-06-21 02:02] LABS: OPIATES, UR POSITIVE (NEGATIVE)
--- NOTE | 2018-06-21 04:09 | PCM.BM ---
<Aliya Bacon M - Last Filed: 06/21/18 04:07> Treatment Plan Problems - Problems identified on initial assessmt Ineffective Coping Skills Date Initiated: 06/21/18 Assessment reference: NA Status: Active Treatment assets and liabiliti Patient Assests: ADL independent, good support system, negotiates basic needs Patient Liabilities: substance abuse - Milieu Protocol Maintain good personal hygiene: daily Encourage regular showers, daily Remind patient to perform daily oral care, other Assist patient to perform ADL's Maintain personal safety: every shift Educate patient to report safety concerns to staff, every shift Monitor environment for contraband/sharps Medication safety: Monitor for expected outcome, potential side effects: every shift, Assess barriers to learning: every shift, Assess readiness for medication education: every shift <Segundo Bradford - Last Filed: 06/25/18 13:00> - Diagnosis (1) Alcohol abuse Status: Acute Interventions: 06/23/18 12:59 * Assess 7x/week regarding severity of withdrawal * Educate regarding risks, benefits, side effects and alternatives of medications * Use Motivational Interviewing for abstinence * Use CBT for relapse prevention * Medication management for withdrawal symptoms * Encourage medication assisted treatment (2) Opioid dependence Status: Acute Interventions: 06/23/18 13:00 * Assess 7x/week regarding severity of withdrawal * Educate regarding risks, benefits, side effects and alternatives of medications * Use Motivational Interviewing for abstinence * Use CBT for relapse prevention * Medication management for withdrawal symptoms * Encourage medication assisted treatment
[2018-06-21] MEDS: Multiple Vitamins Tab PO SCH (12:25)
[2018-06-21] MEDS ORDERED: Aluminum Hydroxide/Magnesium Hydroxide Susp (30 mL) PO PRN (12:38)
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
[2018-06-22] MEDS: Multiple Vitamins Tab PO SCH (09:44)
--- NOTE | 2018-06-22 17:33 | PCM.PYCHPN ---
Psychiatric Progress Note - Psychiatric Progress Note Patient seen today, length of contact: 15 minutes Patient Chief Complaint: I'm feeling little better. Problems Identified/Issues Discussed: Patient seen, chart reviewed, case discussed with the staff. Issues related to illness and treatment were discussed with the patient and staff. Reported compliant with treatment with no adverse affects. Tolerating treatment very well. Calm and cooperative. Mood reported as anxious. Affect appropriate. Reported feeling little better, still has some withdrawal symptoms. Aftercare discussed with the patient. Patient was awake, alert and oriented 3. Denied any delusions, auditory or visual hallucinations, suicidal ideations or homicidal ideations at the time of evaluation. Medical Problems: Liver cirrhosis Hepatitis C Hypertension Peptic ulcer disease Diagnostic Results: Reviewed DSM 5 Symptoms Update: Improving with treatment Medication Change: No Medical Record Reviewed: Yes Mental Status Examination - Cognitive Function Orientation: Person, Place, Situation, Time Memory: Intact Attention: WNL Concentration: WNL Association: [facility] Fund of Knowledge: [facility] Decription of patient's judgement and insights: Fair - Mood Mood: Anxious - Affect Affect: Other (Appropriate) - Speech Speech: Appropriate - Formal Thought Process Formal Thought Process: No Impairment Psychotic Thoughts and Behaviors: None - Suicidal Ideation Suicidal Ideation: No - Homicidal Ideation Homicidal Ideation: No Goal/Treatment Plan - Goal/Treatment Plan Need for Continued Stay: Remain at risks for inpatient hospitalization, Discharge may exacerbated symptoms, Severe functional impairment Progress Toward Problem(s) and Goals/Treatment Plan: Patient education. Supportive therapy. CBT for relapse prevention. MS for abstinence. Continue treatment as before. Estimated Date of D/C: 06/25/18 - Smoking Cessation Smoking Cessation Initiated: No Reason for not providing: Patient doesn't smoke cigarettes
[2018-06-23] MEDS: Multiple Vitamins Tab PO SCH (09:45)
--- NOTE | 2018-06-23 15:36 | PCM.PYCHPN ---
Psychiatric Progress Note - Psychiatric Progress Note Patient seen today, length of contact: 15 minutes Patient Chief Complaint: "Not well" Problems Identified/Issues Discussed: The pt is seen, chart reviewed, case discussed with staff. Support and psychoeducation given, CBT and LA used briefly No new symptoms reported, improving slowly and needs more time No SEs from medications, risks discussed. After care discussed Medication Change: Yes (detox changes daily) Medical Record Reviewed: Yes Mental Status Examination - Cognitive Function Orientation: Person, Place, Situation, Time Memory: Impaired Attention: Poor Concentration: Poor Association: WNL Fund of Knowledge: WNL - Mood Mood: Anxious - Affect Affect: Other (Appropriate) - Speech Speech: Appropriate - Formal Thought Process Formal Thought Process: No Impairment - Suicidal Ideation Suicidal Ideation: No - Homicidal Ideation Homicidal Ideation: No Goal/Treatment Plan - Goal/Treatment Plan Need for Continued Stay: Remain at risks for inpatient hospitalization, Discharge may exacerbated symptoms, Severe functional impairment Progress Toward Problem(s) and Goals/Treatment Plan: Continue medications for detox Support and psychoeducation daily Attend groups and activities daily After care planning by BRODIE Estimated Date of D/C: 06/25/18
[2018-06-24] MEDS: Multiple Vitamins Tab PO SCH (09:46)
[2018-06-25] MEDS: Multiple Vitamins Tab PO SCH (09:39)
--- NOTE | 2018-06-25 13:01 | PCM.PYCHPN ---
Psychiatric Progress Note - Psychiatric Progress Note Patient seen today, length of contact: 16 min Patient Chief Complaint: "Withdrawing" Problems Identified/Issues Discussed: The pt is seen, chart reviewed, case discussed with staff. The pt is compliant with medications and reports no side-effects. Symptoms are improving but needs more time to stabilize. Pt attends groups and activities rarely b/c of ongoing wdw Support given, psycho-education provided. After care discussed. Medication Change: Yes (detox changes daily) Medical Record Reviewed: Yes Mental Status Examination - Cognitive Function Orientation: Person, Place, Situation, Time Memory: Impaired Attention: Poor Concentration: Poor Association: WNL Fund of Knowledge: WNL - Mood Mood: Anxious - Affect Affect: Other (Appropriate) - Speech Speech: Appropriate - Formal Thought Process Formal Thought Process: No Impairment - Suicidal Ideation Suicidal Ideation: No - Homicidal Ideation Homicidal Ideation: No Goal/Treatment Plan - Goal/Treatment Plan Need for Continued Stay: Remain at risks for inpatient hospitalization, Discharge may exacerbated symptoms, Severe functional impairment Progress Toward Problem(s) and Goals/Treatment Plan: Continue medications for detox Support and psychoeducation daily Attend groups and activities daily After care planning by BRODIE Estimated Date of D/C: 06/25/18
--- NOTE | 2018-06-25 13:04 | PCM.PYCHPN ---
Psychiatric Progress Note - Psychiatric Progress Note Patient seen today, length of contact: 17 min Patient Chief Complaint: "I have so much pain" Problems Identified/Issues Discussed: The pt is seen, chart reviewed, case discussed with staff. The pt is compliant with medications and reports no side-effects. Symptoms are improving but needs more time to stabilize. Detox is extended one more day as she is in bed all the time and feels sick Flexeril added High relapse risk Support given, psycho-education provided. After care discussed. Medication Change: Yes (detox changes daily) Medical Record Reviewed: Yes Mental Status Examination - Cognitive Function Orientation: Person, Place, Situation, Time Memory: Impaired Attention: Poor Concentration: Poor Association: WNL Fund of Knowledge: WNL - Mood Mood: Anxious - Affect Affect: Constricted - Speech Speech: Appropriate - Formal Thought Process Formal Thought Process: No Impairment - Suicidal Ideation Suicidal Ideation: No - Homicidal Ideation Homicidal Ideation: No Goal/Treatment Plan - Goal/Treatment Plan Need for Continued Stay: Severe depression anxiety, Discharge may exacerbated symptoms, Severe functional impairment Progress Toward Problem(s) and Goals/Treatment Plan: Continue medications for detox Celexa switched to lexapro Support and psychoeducation daily Attend groups and activities daily After care planning by joaquin Estimated Date of D/C: 06/26/18 If changed, why: still sick
--- NOTE | 2018-06-26 08:48 | PCM.PYCHDC ---
Mental Status Examination - Mental Status Examination Orientation: Person Discharge Summary - Discharge Note Consultations:: List each consultation separately and include: 1. Reason for request. 2. Findings. 3. Follow-up Summary of Hospital Course include:: 1. Description of specific treatment plan utilized for patients during their course of treatmen. 2. Summarize the time- course for resolution of acute symptoms and/or regressed behaviors. 3. Describe issues identified and worked on during hospitalization. 4. Describe medication utilized. 5. Describe medical problems identified and treated. 6. Reassessment of suicide risk Summary of Hospital Course: She will go to [facility] in [place]. - Final Diagnosis (DSM 5) Condition upon Discharge: FAIR Disposition: HOME/ ROUTINE Follow-up Treatment Plan: Continue medications for detox Celexa switched to lexapro Support and psychoeducation daily Attend groups and activities daily After care planning by joaquin Prescriptions/Medication Reconciliation: Cyclobenzaprine [Flexeril] 5 mg PO TID #90 tab Escitalopram [Lexapro] 20 mg PO DAILY #30 tab Gabapentin [Neurontin] 300 mg PO TID #90 cap Propranolol [Inderal] 20 mg PO BID #60 tab traZODone [Desyrel] 100 mg PO HS PRN #30 tab PRN Reason: Insomnia
[2018-06-26 10:41] VITALS: BP 128/85; PULSE 58; RESP 20; TEMP 98.1; O2SAT 96
[2018-06-26] MEDS: Multiple Vitamins Tab PO SCH (11:01)
== END 2018-06-26 11:15 | disposition home or self-care (01) | DRG 744 ==
LOC: C.ER 00:26 → C.7D 03:10
PROC: GZ56ZZZ Individual Psychotherapy, Supportive (ICD-10-PCS; principal; 2018-06-21)
DX: F11.20 Opioid dependence, uncomplicated (principal); B19.20 Unspecified viral hepatitis C without hepatic coma; J44.9 Chronic obstructive pulmonary disease, unspecified; K74.60 Unspecified cirrhosis of liver; N18.9 Chronic kidney disease, unspecified; F10.120 Alcohol abuse with intoxication, uncomplicated; Y90.7 Blood alcohol level of 200-239 mg/100 ml; F43.12 Post-traumatic stress disorder, chronic; I12.9 Hypertensive chronic kidney disease with stage 1 through stage 4 chronic kidney disease, or unspecified chronic kidney disease; Z62.810 Personal history of physical and sexual abuse in childhood; Z87.891 Personal history of nicotine dependence